=== PATIENT | female | born 1970 | race Caucasian/White ===

== ENCOUNTER 2021-04-25 09:23 | Day surgery (SDC) | payer OTHER ==
[~2021-04-25 09:23] MED LIST: Metoclopramide 10 MG/2 ML SDV IV PRN; Sodium Chloride 0.9% 1,000 ML IV SCH
[2021-04-25] MEDS ORDERED: Propofol 1,000 MG/100 ML SDV ONE (13:00)
--- NOTE | 2021-04-25 19:16 | OR ---
DATE OF OPERATION: 04/25/2021 SURGEON: Gilbert Headley MD PREOPERATIVE DIAGNOSIS: Screening colonoscopy. POSTOPERATIVE DIAGNOSIS: Screening colonoscopy. PROCEDURE: Screening colonoscopy. ANESTHESIA: MAC. ESTIMATED BLOOD LOSS: None. COMPLICATIONS: None. INDICATION FOR THE PROCEDURE: Patient is a 50-year-old female here today for her first colonoscopy. Denies any family history of colon cancer. Denies any change in bowel habits. DESCRIPTION OF PROCEDURE: Informed consent was obtained from the patient. The patient was taken to the operating room, placed on table in a left lateral decubitus position. Monitored anesthesia care was administered. Digital rectal exam performed and was normal. Colonoscope was then advanced through the anus directed toward the cecum. Cecum was reached and identified by appendiceal orifice and ileocecal valve. Colonoscope was then slowly withdrawn. No masses. No polyps. No areas of ischemia or inflammation identified. Did have a couple of very small diverticula in the sigmoid colon. The rectum was also, otherwise, unremarkable. Colonoscope then withdrawn. FINDINGS: Minimal sigmoid diverticulosis, otherwise normal. RECOMMENDATIONS: Would recommend repeat screening colonoscopy in 10 years. AUGUST[place]/RAJWINDER /[id number]
== END 2021-04-25 14:10 | disposition home or self-care (01) ==
LOC: LB.SDS 09:23
PROVIDERS: ATTEND Surgery
DX: Z12.11 Encounter for screening for malignant neoplasm of colon (principal); K57.30 Diverticulosis of large intestine without perforation or abscess without bleeding; G89.29 Other chronic pain; M54.9 Dorsalgia, unspecified; Z88.8 Allergy status to other drugs, medicaments and biological substances
CPT/HCPCS: 45378; J2704; J7030